=== PATIENT | female | born 1965 | race Caucasian/White ===

== ENCOUNTER 2023-12-24 05:00 | Outpatient (CLI) | payer BC, SELFPAY ==
[2023-12-24 13:09] LABS: Hemoglobin A1C 5.5 % (<5.7)
[2023-12-24 13:13] LABS: Calculated LDL 108 mg/dL (<100); Cholesterol 191 mg/dL (<200); HDL Cholesterol 74 mg/dL (40-60); TSH (W/Ref FT4) 0.98 uIU/mL (0.36-3.74); Triglyceride 49 mg/dL (<150)
== END 2023-12-24 05:01 | disposition home or self-care (01) ==
LOC: LBO 05:00
PROVIDERS: PCP Nurse Practitioner Family; Visit Provider Nurse Practitioner Family
DX: Z13.220 Encounter for screening for lipoid disorders (principal); Z13.29 Encounter for screening for other suspected endocrine disorder; Z13.1 Encounter for screening for diabetes mellitus
CPT/HCPCS: 36415; 80061; 83036; 84443

== ENCOUNTER 2023-12-30 11:02 | Outpatient (REF) | payer BC, SELFPAY ==
--- NOTE | 2023-12-30 10:40 | PAPFT_PTH ---
PATIENT: Cristina Ralph LOC: [facility] U#:[id number] AGE/SX: 58/F ROOM: RE12/30/[address]: Basilia Mejía NP : 1965 BED: DIS: 12/30/2023 SPEC #: [id number] RECD: 12/30/23 12:47 STATUS: NORA RELuzma #: [id number] TIGRE: 12/30/23 10:[address]: Basilia Mejía NP DEPT: [facility] Cytology RECD BY: Estella Quintero ENTERED: 12/30/23 12:47 SP TYPE: PAPFT OTHR DR: Dave Mcfarlane NP Tissues: 1 - CX/ENDOCX FOR PAP SMEARS Procedures: PAP THIN PREP/UVM Screening HPV DNA PROBE Comments: [id number]
== END 2023-12-30 11:03 | disposition home or self-care (01) ==
LOC: LBN 11:02
PROVIDERS: PCP Nurse Practitioner Family; Visit Provider Nurse Practitioner Women's Health
DX: Z12.4 Encounter for screening for malignant neoplasm of cervix (principal); D26.0 Other benign neoplasm of cervix uteri
CPT/HCPCS: 88142; 87624

== ENCOUNTER → 2024-01-06 03:50 | Outpatient (CLI) | payer BC, SELFPAY ==
--- NOTE | 2024-01-06 08:45 | DI.MAMMO_ITS ---
Exam(s) MAMMO SCREENING EXAM: MAMMO SCREENING CLINICAL HISTORY: screening TECHNIQUE: Mammograms were interpreted according to the usual protocol including computer analysis w [employer] CAD system, tomosynthesis and C-view imaging. COMPARISON: 2008 through 2016 from [facility] FINDINGS: The breasts are composed of heterogeneously dense fibroglandular densities, Breast Density category C . No suspicious masses or suspicious microcalcifications are seen. No skin thickening or abnormal axillary lymph nodes are seen. There has been no significant change from prior exams. IMPRESSION: BI-RADS Category 1, Negative mammogram. Yearly screening mammography is recommended. Breast Density Category C, heterogeneously Dense. The mammogram demonstrates the patient's breast tissue is dense. Dense breast tissue is very common a nd is not abnormal but dense breast tissue can make it harder to find cancer on a mammogram. Also, de nse breast tissue may increase breast cancer risk. This information about the result of the mammogram report was provided to the patient to raise their awareness. Use this report when you speak with the patient about their risks for breast cancer, which includes their family history. At that time, you may recommend additional screening tests (Ultrasound or MRI) as they might be useful based on their r isk. A negative radiographic report should not delay biopsy if a dominant or clinically suspicious mass is present. Up to ten percent of cancers are not identified on mammography. A negative report may reinforce clinical impression. Adenosis and dense breasts may obscure an underlying neoplasm. False positive reports average 6 to 10%.
== END ==
PROVIDERS: PCP Nurse Practitioner Family; Visit Provider Nurse Practitioner Women's Health
DX: Z12.31 Encounter for screening mammogram for malignant neoplasm of breast (principal)
CPT/HCPCS: 77063; 77067

== ENCOUNTER 2024-05-02 07:42 | Day surgery (SDC) | payer BC, SELFPAY ==
[2024-05-02 08:03] VITALS: BP 131/81; PULSE 60; RESP 16; TEMP 36.5; O2SAT 98
[2024-05-02] MEDS: Lactated Ringers 1,000 ML 80 ML IV (08:13)
--- NOTE | 2024-05-02 08:56 | W.PM.OP ---
Date of service: 05/02/24 Time of Service: 08:56 Operative Note Operative Note Refer to Anesthesia Record Procedure Description: PROCEDURES PERFORMED: 1. Colonoscopy with hot snare polypectomy x 3 PREOPERATIVE DIAGNOSIS: Screening colonoscopy POSTOPERATIVE DIAGNOSIS: Mild pandiverticulosis, colorectal polyps, grade 1 internal hemorrhoids SURGEON: Chet Rushing MD INDICATION FOR PROCEDURE: the patient is a 59-year-old woman with no symptoms. She has never had a colonoscopy before. No family history of colon cancer. FINDINGS: Terminal ileum was normal. Minimal/mild, scattered diverticular changes throughout the entire colon. In the transverse colon a 3-5 mm sessile polyp was removed with hot snare technique. Further along in the proximal rectum, a 5-7 mm polyp was removed with hot snare technique. A little bit further in the mid-? rectum another 3-5 mm sessile polyp was removed with hot snare technique. Minimal grade 1 internal hemorrhoids are present on retroflexion. SURVEILLANCE interval/FOLLOW-UP: 3-10 years pending path results of the polyps. If sessile serrated or villous histology then 3 years. Otherwise 7 to 10 years. SPECIMENS: Yes EBL: Minimal COMPLICATIONS: None QUALITY of prep: Excellent Procedure in detail: The patient gave written consent and was in agreement with the indications, the potential risks as well as the benefits of the procedure. They were taken to the endoscopy suite and laid in the left lateral decubitus position. A timeout was performed and anesthesia was administered which was tolerated well. I started the procedure. Digital rectal and visual examination was performed and grossly within normal limits. A well-lubricated flexible colonoscope was then introduced and passed without any notable difficulty all the way to the cecum identified by the ileocecal valve and the appendiceal orifice. The terminal ileum was intubated and looked normal. The scope was then slowly withdrawn with the above-noted findings. The patient tolerated the procedure well and was taken to the PACU in hemodynamically stable condition.
--- NOTE | 2024-05-02 08:58 | W.PM.DSUDISC ---
Date of service: 05/02/24 Time of Service: 08:58 Discharge Plan Disposition Patient Disposition: Home Condition: Good Discharge Details Attending Provider: Edgar Rushing Primary Care Provider: Dave Mcfarlane Home Meds and New Rx's Prescriptions: No Action bisacodyl [Dulcolax (bisacodyl)] 5 mg tablet,delayed release (DR/EC) 5 mg PO ONCE Qty: 4 0RF Rx Instructions: Take per colonoscopy instructions provided by ordering providers office polyethylene glycol 3350 17 gram/dose powder 17 g PO ONCE Qty: 238 0RF Rx Instructions: Take per colonoscopy instructions provided by ordering providers office Discharge Instructions Additional Instructions: FINDINGS: A few polyps were found and removed today. This is why we do the colonoscopy and they are nothing to worry about. They will get tested in pathology lab. You will get called with the results of that testing. The testing will determine whether you need another colonoscopy done in 3 years, 7 years or 10 years. Separately, some mild hemorrhoid and diverticular disease was found today. This is extremely common, they are benign conditions, and nothing needs to be done about them. Again, another colonoscopy will need to be done in 3 to 10 years depending on the path results of those polyps. Activity:: Activity as Tolerated Diet:: As Tolerated
--- NOTE | 2024-05-02 09:06 | W.ANESPRE ---
General Info Date of Service Date Performed: 05/02/24 Height: 5 ft 5 in Weight: 82.6 kg Body Mass Index (BMI): 30.3 Surgical Procedure: Operation Date: 05/02/24 09:20 Proposed Procedure Side Surgeon p Colonoscopy Edgar Rushing MD Actual Procedure Side Surgeon p Colonoscopy Edgar Rushing MD Pre-Op Diagnosis Post-Op Diagnosis screening colonoscopy Meds Allergies and Home Medications Allergies Allergy/AdvReac Type Severity Reaction Status Date / Time No Known Allergies Allergy Verified 05/02/24 08:03 Home Medication ?Medication ?Instructions ?Recorded bisacodyl 5 mg tablet,delayed 5 mg PO ONCE #4 tabs 04/07/24 release (Dulcolax (bisacodyl)) polyethylene glycol 3350 17 17 g PO ONCE #238 grams 04/07/24 gram/dose oral powder Current Visit Medications: Current Medications Generic Name Dose Route Start Last Admin Trade Name Freq PRN Reason Stop Dose Admin Ringer's Solution 1,000 mls @ 80 mls/hr 05/02/24 06:00 05/02/24 08:13 IV 05/02/24 23:59 80 mls/hr INFUSION CORINA Administration IV Miscellaneous Supplies 1 each 05/02/24 06:00 Iv Access IV 05/02/24 23:59 DIRECTED CORINA Sodium Chloride 0 ml 05/02/24 06:00 Normal Saline Flush 10 Ml Syr IV 05/02/24 23:59 PRN PRN Sodium Chloride 0 ml 05/02/24 06:00 Normal Saline 10 Ml Vial IJ 05/02/24 23:59 DIRECTED PRN Sterile Water 0 ml 05/02/24 06:00 Water,Injection,Sterile 10 Ml Vial IJ 05/02/24 23:59 DIRECTED PRN PFSH Active Problems Active Problems: Problem Status Onset Code Vaginal atrophy Acute N95.2 Skin lesion Acute L98.9 Mass in neck Acute R22.1 Smoker Acute F17.200 Medical History Medical History Hormone replacement therapy stopped around 2018 Sciatica Surgical History Surgical History H/O bilateral oophorectomy H/O ovarian cystectomy L Tobacco Smoking/Tobacco Use Status: Former Tobacco Use Passive smoking exposure: Yes Second hand exposure: Yes Counseling given: provider counseling Alcohol Alcohol Intake: current Alcohol intake frequency: holidays/special occasions only Alcohol type: beer Substance Use Substance use: Never Substance use type: does not use Vital Signs and Lab Results Vital Signs Most Recent Vital Signs in EMR: Most Recent Vital Signs Temp Pulse Resp BP Pulse Ox 36.5 C 60 16 131/81 98 05/02/24 08:03 05/02/24 08:03 05/02/24 08:03 05/02/24 08:03 05/02/24 08:03 Lab Results Blood Type / Crossmatch: No Data to Display Complete Blood Count: No Data to Display Complete Metabolic Panel: No Data to Display Liver Function Panel: No Data to Display Coagulation Panel: No Data to Display Cardiac Panel: No Data to Display Arterial Blood Gas: No Data to Display Venous Blood Gas: No Data to Display Pancreas Panel: No Data to Display Thyroid Panel: No Data to Display Infectious Disease: No Data to Display Blood Cultures: No Data to Display Toxicology Panel: No Data to Display Anesthesia Assessment and Plan Anesthesia History Personal History: No History of Anesthesia Complications Family History: No Family History of Anesthesia Complications Exercise Tolerance Exercise Tolerance: Metabolic Equivalents>4 Pertinent Negatives Pertinent Negatives: No Symptoms of GERD Cardiac & Pulmonary Exam Cardiac Exam: Normal S1/S2 Heart Sounds Pulmonary Exam: Clear Bilateral Breath Sounds Implantable Cardiac Device Does patient have a Pacemaker or an ICD?: No Airway Exam Known Difficult Airway: No Mallampati Class: 2 Mouth Opening: Normal (> 3cm) Thyromental Distance: Greater than 3 cm Neck Range of Motion: Full ROM Neck Circumference: Normal Teeth Condition: Normal Dentition ASA Classification ASA Score: ASA 2 Emergency Case?: No NPO Status NPO Status: NPO Clears >2 hours, Solids >8 hours Anesthesia Plan Resuscitation Status: Full Code Anesthesia Technique: General Anesthesia Airway Planned: Natural Airway Monitors Used: Standard Monitors
[2024-05-02 09:08] VITALS: BMI 30.3
--- NOTE | 2024-05-02 09:22 | BOWEL_PTH ---
PATIENT: Cristina Ralph LOC: [facility] U#:[id number] AGE/SX: 59/F ROOM: RE05/02/[address]: Edgar Rushing : 1965 BED: DIS: 05/02/2024 SPEC #: [id number] RECD: 05/02/24 11:48 STATUS: NORA RE #: [id number] TIGRE: 05/02/24 09:[address]: Edgar Rushing DEPT: Surgical Specimen RECD BY: Joselin Starkey ENTERED: 05/02/24 11:49 SP TYPE: Bowel OTHR DR: Dave Mcfarlane, [employer] OPERATOR Tissues: 1 - BIOPSY BOWEL 2 - BIOPSY BOWEL 3 - BIOPSY BOWEL Procedures: GROSS AND MICRO LEVEL 4 Comments: [id number]
[2024-05-02 09:41] VITALS: BP 125/77; PULSE 59; RESP 17; TEMP 36.5; O2SAT 98
--- NOTE | 2024-05-02 09:42 | W.ANESPOSTOP ---
Postoperative Evaluation Date, Time and Location Date Performed: 05/02/24 Time Performed: 09:42 Patient Location: Day Surgery Unit Vital Signs Most Recent Imported Vital Signs: Most Recent Vital Signs Temp Pulse Resp BP Pulse Ox 36.5 C 59 L 17 125/77 98 05/02/24 09:41 05/02/24 09:41 05/02/24 09:41 05/02/24 09:41 05/02/24 09:41 Pain Score Most Recent Pain Score: Most Recent Pain Score Pain Level 0 05/02/24 08:03 Assessment Mental Status: Awake (Alert & Oriented to Patient Baseline) Airway and Respiratory Function: Patent airway with normal (patient baseline) respiratory exam Cardiovascular Function: Hemodynamically Stable Hydration Status: Adequately Hydrated Nausea & Vomiting: No Nausea or Vomiting Pain: Pt. Denies Any Pain Peripheral Nerve Block: Patient did not receive a nerve block
[2024-05-02 10:04] VITALS: BP 123/76; PULSE 55; RESP 17; TEMP 36.5; O2SAT 100
== END 2024-05-02 10:27 | disposition home or self-care (01) ==
PROVIDERS: PCP Nurse Practitioner Family; Visit Provider Student in an Organized Health Care Education/Training Program
PROC: 0DJD8ZZ Inspection of Lower Intestinal Tract, Via Natural or Artificial Opening Endoscopic (ICD-10-PCS; CPT 45378; principal; 2024-05-02 09:15)
DX: Z12.11 Encounter for screening for malignant neoplasm of colon (principal); D12.3 Benign neoplasm of transverse colon; K62.1 Rectal polyp; K57.30 Diverticulosis of large intestine without perforation or abscess without bleeding; K64.0 First degree hemorrhoids
CPT/HCPCS: 45385; 00123; 88305; J2001; J2704

== ENCOUNTER 2024-09-17 15:33 | Emergency (ER) | payer OTHER, SELFPAY ==
[2024-09-17 15:35] VITALS: BP 144/92; PULSE 84; RESP 14; TEMP 36.8; O2SAT 98
[2024-09-17 15:45] VITALS: BP 144/92; PULSE 84; RESP 14; TEMP 36.8; O2SAT 98
--- NOTE | 2024-09-17 16:09 | W.ED.GENAD ---
Discharge Plan Disposition Patient Disposition: Home Condition: Stable Discharge Details Clinical Impression: Fecal impaction in rectum, Constipation Primary Care Provider: Dave Mcfarlane ED Provider: Mary Humphreys Home Meds and New Rx's Prescriptions: No Action No Known Home Meds Discharge Instructions Instructions: Fecal Impaction (DC) Additional Instructions: You were seen in the emergency department today for evaluation of constipation found to have a fecal impaction. In our department you had a full physical examination that was reassuring, had a manual disimpaction followed by a large-volume enema that was successful in passing a good quantity of stool. Now that the fecal obstruction is relieved, we need to start you on a bowel regimen that we will prevent the buildup of stool from occurring again. I recommend that you start by taking senna and MiraLAX, 1 dose twice per day. You may need to make adjustments to this dosing strategy, but the goal is for you to pass a moderate-sized, toothpaste consistency stool once per day. If you are going more often than that, you can decrease the frequency of medications or stop one of the medications altogether, and you can increase the MiraLAX dose as needed if you find that you are still not passing stool. You need to follow-up with your primary care provider in the next few days to discuss this visit and any symptoms change, worsen, or persist. If you develop a fever, nausea or vomiting, sudden or severe abdominal pain, or fail to pass gas for more than 12 hours, you need to return to the emergency department for reevaluation. Thank you for allowing us to be part of your care. HPI General Mode of arrival: ambulatory. Date/Time Provider Initiated Documentation: 09/17/24 15:35. Limitations to Documentation: no limitations. Information obtained by: patient and old records reviewed. HPI Narrative: HPI: This is a 59-year-old female patient with a past medical history significant for salpingectomy and oophorectomy bilaterally presenting for evaluation of constipation. The patient reports that she has been working on increasing her fitness, and has been drinking protein shakes and doubled the amount of protein shakes that she drank this week. She reports that she has been in her hydration, but became constipated, last bowel movement 2 or 3 days ago. She is still passing flatus, states that she has not had any nausea or vomiting, abdominal pain, but does feel a pressure in her rectum. She has tried stool softeners as well as Fleet enemas with no improvement. The patient reports that she has never had a bowel obstruction, has not had a fever, has been eating and drinking normally. No pain with urination although she can feel the pressure in her rectum when she urinates. Exam: Gen: Awake and alert, in no apparent distress HEENT: Non-icteric sclera Neck: Supple Lungs: No apparent respiratory distress, normal respiratory effort. CV: Appears well perfused, heart with regular rate and rhythm, strong distal pulses Abdomen: Non-distended, soft, nontender to palpation without rigidity, rebound, guarding : Rectal examination supervised by FUNMILAYO Shepherd, showing no external abnormalities such as hemorrhoids, fissures, etc. The patient does have a hard palpable stool ball in the rectal vault. No blood appreciated on the glove MSK: Moves 4 extremities without apparent limitation in ROM Skin: Visualized skin without rashes, cyanosis. Neuro: Normal Gait, no obvious focal deficits or facial asymmetry. Speaks in full, clear sentences. Psych: Appropriate for situation. MDM: This is a 59-year-old female patient presenting for evaluation of constipation. My differential includes but is not limited to fecal impaction, constipation, certainly considered that this may be due to slow transit in the setting of diet changes. The patient is not on any medications which would significantly increase her risk of constipation. I have a lower concern for bowel obstruction in this patient who does not have obstipation, and she has no obstructive symptoms such as nausea or vomiting. She has no abdominal tenderness to significantly increase my concern for intra-abdominal pathology. ED Course: A fecal disimpaction was performed, and a soapsuds enema was instilled. The patient was able to pass a large volume of soft, nonbloody stool, and had improvement in her rectal fullness after this event. We had an extended discussion regarding bowel regimen initiation, and I recommended senna and MiraLAX up to twice per day, titrated to 1 soft stool per day. She will follow-up with her primary care provider for reassessment, and we did discuss return precautions, especially for symptoms of bowel obstruction. At this time, the patient has had a full medical evaluation and is safe for discharge to home. They are hemodynamically stable, ambulatory, and tolerating PO. They are understanding of the follow-up plan and return precautions. They left our facility without incident. Mary Humphreys MD Related Data Home Medications ?Medication ?Instructions ?Recorded ?Confirmed Unknown [No Known Home Meds] 09/17/24 09/17/24 Allergies Allergy/AdvReac Type Severity Reaction Status Date / Time No Known Allergies Allergy Verified 09/17/24 15:41 General Stated Complaint: Abd Prob CECIL: 3 Course Vital Signs Vital signs: Vital Signs Temperature 36.8 C 09/17/24 15:35 Pulse 84 09/17/24 15:35 Respiratory Rate 14 09/17/24 15:35 Blood Pressure 144/92 H 09/17/24 15:35 Pulse Oximetry 98 09/17/24 15:35 Temperature 36.8 C 09/17/24 15:45 Temperature Source Oral 09/17/24 15:45 Pulse 84 09/17/24 15:45 Respiratory Rate 14 09/17/24 15:45 Blood Pressure 144/92 H 09/17/24 15:45 Blood Pressure Position Standing 09/17/24 15:45 Pulse Oximetry 98 09/17/24 15:45 Oxygen Delivery Method Room Air 09/17/24 15:45 Oxygen Flow Rate 0 09/17/24 15:45 Pain Level 4 09/17/24 15:45 Comment Pain can increase to 7 or 8 w/ movement. 09/17/24 15:45 Procedure Rectal Dismpaction Date of Procedure: 09/17/24 Time of procedure: 16:13 Provider that performed the procedure: Mary Humphreys Indication: fecal impaction Patient Consented: Verbally Technique: manual disimpaction with gloved finger Result: significant stool output Patient Tolerated Procedure: well Complications: none Medical Decision Making Quality:SDOH Health Related Social Needs: No Data to Display PFSH All Active Problems Constipation (Acute) Fecal impaction in rectum (Acute) Vaginal atrophy (Acute) Skin lesion (Acute) Mass in neck (Acute) Smoker (Acute) 1 pack/day Medical History (Updated 09/17/24 @ 16:48 by Mary Humphreys MD) Hyperplastic colon polyp (~04/2024) Tubular adenoma of colon (~04/2024) Hormone replacement therapy stopped around 2018 Sciatica Surgical History (Updated 05/02/24 @ 15:45 by Jo Verdugo) History of colonoscopy (~04/2024) H/O bilateral oophorectomy H/O ovarian cystectomy L Family History Mother Cancer Father Diabetes Heart disease Hyperlipidemia Hypertension Maternal Grandfather Cancer Diabetes Hyperlipidemia Hypertension Paternal Grandmother Diabetes Heart disease Hyperlipidemia Hypertension Social History (Updated 04/07/24 @ 10:18 by CURTIS Harvey) Smoking/Tobacco Use Status: Former Tobacco Use Quit Date: 01/06/24 Tobacco: How many years used: 35 Quit status: quit date established Second Hand Exposure: Yes Counseling given: provider counseling Smoking risk assessment performed?: Yes Alcohol Intake: current Alcohol Intake frequency: holidays/special occasions only Alcohol type: beer Drug use: Never Substance use type: does not use Adopted: No Caregiver/Support person: No Household members: none Housing: house Number of Children: 0 Communication Needs: None Education Level: high school Do you need help understanding health information?: Never 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 Sexually active: Yes Do you think of yourself as: straight/heterosexual Current gender identity: female What is your relationship status?: refused to answer How often do you talk on the phone with friends or family?: three or more times per week How often do you get together with friends or relatives?: three or more times per week How often do you attend oriental orthodox or scientologist services?: 4 or more times per year Do you belong to any clubs or organized social groups?: no Panel score (0-1 are the most socially isolated patients): 2 What type of physical activity do you participate in: regular exercise Molly/Sikhism: Confucianism Special molly needs: No Seatbelt use: always Helmet use: Yes Helmet use: always Drive intox or ride w/intox trolley coach driver: No Firearms in home: No Do you feel safe at home: Yes Do you feel safe in your relationship?: Yes Victim of physical abuse: No Victim of emotional abuse: No Victim of sexual abuse: No Would you like helpful sources: No Female Reproductive History Menstrual Age of Menarche: 12 control method: none Menopause type: surgical
[2024-09-17 16:56] VITALS: BP 132/80; PULSE 75; RESP 16; TEMP 37; O2SAT 97
== END 2024-09-17 16:57 | disposition home or self-care (01) ==
LOC: ER 16:52
PROVIDERS: Emergency Provider Emergency Medicine; PCP Nurse Practitioner Family
DX: K59.00 Constipation, unspecified (principal); K56.41 Fecal impaction
CPT/HCPCS: 99283

== ENCOUNTER 2025-02-02 02:41 | Outpatient (CLI) | payer OTHER, SELFPAY ==
--- NOTE | 2025-02-02 08:06 | DI.MAMMO_ITS ---
Exam(s) MAMMO SCREENING EXAM: MAMMO SCREENING CLINICAL HISTORY: screening. TECHNIQUE: Bilateral full field digital CC and MLO mammographic images were obtained with 3D tomosyn thesis and utilizing computer aided detection (CAD). COMPARISON: Prior mammograms dating back to 2014 were reviewed. Most recent mammogram reviewed was January 2024 FINDINGS: There has been no significant change in the appearance and distribution of the fibroglandular tissue. Asymmetric densities in both breasts appears unchanged prior mammograms. There are no new spiculated masses nor new malignant appearing microcalcification groups. There is no significant architectural distortion nor skin thickening-retraction. IMPRESSION: No radiographic evidence of malignancy. BI-RADS Category 1 - Negative Breast Density - Category B - There are scattered areas of fibroglandular density. Breast density Category C or D implies that the patient has dense breast tissue. Dense breast tissue can make it harder to find cancer on a mammogram. Dense breast tissue is also associated with an incr eased risk of breast cancer. This information about the result of the mammogram report was provided to the patient to raise their awareness. Use this report when you speak with the patient about their risks for breast cancer, which includes their family history. At that time, you may recommend additional screening tests (Ultrasoun d or MRI) as these tests may add significant information. A negative radiographic report should not delay biopsy if a dominant or clinically suspicious mass is present. Up to ten percent of cancers are not identified on mammography. A negative report may reinforce clinical impression. Adenosis and dense breasts may obscure an underlying neoplasm. False positive reports average 6 to 10%. Patient will receive a letter notifying them of these results.
== END 2025-02-02 03:01 ==
LOC: DI 02:41
PROVIDERS: PCP Nurse Practitioner Family; Visit Provider Nurse Practitioner Women's Health
DX: Z12.31 Encounter for screening mammogram for malignant neoplasm of breast (principal); R92.323 Mammographic fibroglandular density, bilateral breasts
CPT/HCPCS: 77063; 77067

== ENCOUNTER 2025-02-28 02:14 | Outpatient (CLI) | payer OTHER, SELFPAY ==
--- NOTE | 2025-02-28 | DI.RAD_ITS ---
Exam(s) XR FOOT LT COMPLETE EXAM: XR FOOT LT COMPLETE CLINICAL HISTORY: PAIN LT FOOT, M79.672. TECHNIQUE: 2D digital imaging was performed of the left foot. Three images were obtained. AP, oblique and lateral views were obtained. COMPARISON: No exams were available for comparison FINDINGS: BONES: No acute fracture is present. No bony destructive lesion is seen. There is a well-circumscribed non expansile cyst in the navicular. There is a small plantar calcaneal spur. JOINTS: No dislocation present. The joint spaces are well maintained. SOFT TISSUE: Normal. IMPRESSION: 1. Small plantar calcaneal spur. 2. Well-circumscribed cyst in the navicular. It has benign appearance. This may represent a simple bone cyst. Follow-up as clinically appropriate. DATA REPOSITORY: RADIATION DOSE DELIVERED:
--- NOTE | 2025-02-28 | DI.RAD_ITS ---
Exam(s) XR KNEE RT 3V AP,LAT,AMANDO EXAM: XR KNEE RT 3V AP,LAT,AMANDO CLINICAL HISTORY: PAIN JOINT KNEE RT, M25.561. TECHNIQUE: 2D digital imaging was performed of the right knee. Three views obtained. AP, lateral and PA tunnel views were obtained. COMPARISON: No exams were available for comparison FINDINGS: BONES: No acute fracture is present. No bony destructive lesion is seen. JOINTS: The knee is normally aligned. No joint effusion is seen. SOFT TISSUE: Normal. IMPRESSION: Unremarkable radiographs of the right knee. DATA REPOSITORY: RADIATION DOSE DELIVERED:
== END 2025-02-28 02:34 ==
PROVIDERS: PCP Nurse Practitioner Family; Visit Provider Nurse Practitioner Family
DX: M25.561 Pain in right knee (principal); M79.672 Pain in left foot
CPT/HCPCS: 73562; 73630

== ENCOUNTER 2025-03-20 14:03 | Outpatient (REF) | payer OTHER, SELFPAY ==
[2025-03-20 17:54] LABS: ESR 12 mm/hr (0-30)
[2025-03-20 17:59] LABS: C-Reactive Protein < 0.50 mg/dL (<or=0.5)
== END 2025-03-20 14:04 | disposition home or self-care (01) ==
LOC: NCHCN 14:03
PROVIDERS: PCP Nurse Practitioner Family; Visit Provider Nurse Practitioner Family
DX: M25.60 Stiffness of unspecified joint, not elsewhere classified (principal)
CPT/HCPCS: 85652; 86038; 86140; 86431

== ENCOUNTER 2025-06-18 11:25 | Emergency (ER) | payer OTHER, SELFPAY ==
[2025-06-18 11:27] VITALS: BP 144/89; PULSE 82; RESP 18; TEMP 37.3; O2SAT 98
[2025-06-18 11:34] VITALS: BP 144/89; PULSE 82; RESP 18; TEMP 37.3; O2SAT 98
--- NOTE | 2025-06-18 11:39 | W.ED.GENAD ---
Discharge Plan Disposition Patient Disposition: Home Discharge Details Clinical Impression: Constipation Primary Care Provider: Anita Foote ED Provider: Thomas Gonzalez Home Meds and New Rx's Prescriptions: Continued phentermine 37.5 mg tablet 37.5 mg PO DAILY Patient Comments: TAKE ONE TABLET BY MOUTH EVERY MORNING topiramate 50 mg tablet 50 mg PO DAILY Patient Comments: TAKE ONE TABLET BY MOUTH TWICE A DAY Discharge Instructions Additional Instructions: You were seen in the emergency department for your constipation. Please make sure you drink plenty of water and exercise each day. You may consider taking [id number] MiraLAX to soften your stool. There are also additional stool softeners. As we discussed, if you begin vomiting and do not stop or if you have any other concerns please return to the emergency department. Otherwise please follow-up with your primary care provider. Discharge Data Discharge Date/Time-TO BE ENTERED AT DEPARTURE: 06/18/25 14:20 HPI General Date/Time Provider Initiated Documentation: 06/18/25 11:39. HPI Narrative: MDM This is an overall quite well-appearing normothermic but not tachycardic constipated 60-year-old female with exam reassuring against a small bowel obstruction for which patient will receive both motility agents stool softener and enema prior to discharge with expectant outpatient management. She has a soft nontender abdomen so I am not suspicious for appendicitis in the absence of a right lower quadrant tenderness. She has not been vomiting making my suspicion lower for small bowel obstruction. No rash to abdomen to suggest zoster. No history of inflammatory bowel disease to suggest flare. Patient has had screening colonoscopies in the past and so I am not suspicious for malignancy as I do not feel she requires a CAT scan. No history of diarrhea nor left lower quadrant tenderness to suggest diverticulitis. Will attempt treatment with senna, Colace, and GoLytely. 2:03 PM Patient had Fleet enema and subsequent bowel movement. She felt improved. We discussed that she should return if she developed any abdominal pain could not eat or drink or develop recurrent constipation. She understood her return indications and was discharged with empiric trial of expectant outpatient management. HPI History of Present Illness This is a patient with a history of constipation presenting with constipation. The patient has been experiencing constipation since , with his last bowel movement occurring on Thursday. This is not his first encounter with this issue, as he had a similar episode in the past, which was more severe due to a delay in seeking treatment. He reports no abdominal pain, fevers, burning during urination, or vomiting. He has no history of abdominal surgeries but has undergone colonoscopies in the past, all of which were unremarkable. He attributes his current constipation to dietary changes, including the introduction of protein shakes and skipping meals. He also mentions that he has been consuming quick dinners and neglecting to eat salads or bread. His diet includes a boiled egg and a shake around 7:30 PM, but he has been forgetting the egg and only consuming the shake in recent days. He attempted to alleviate the constipation by taking laxatives last night and using an enema this morning, but these measures did not result in a bowel movement. He recalls that during his previous episode of constipation, he experienced significant discomfort and difficulty walking due to a full blockage. The treatment at that time involved a hot enema and manual disimpaction. She is passing gas. Exam General: Well-appearing in no acute distress speaking in complete sentences. Head: Normocephalic, atraumatic. Eye: Extraocular eye movements intact. No conjunctival injection. No scleral icterus. Ear, nose, mouth, throat: Grossly normal inspection. Normal voice, handling secretions normally. Neck: Trachea midline. Cardiovascular: Well-perfused distal extremities. Respiratory: Nonlabored respiration. Gastrointestinal: Nondistended abdomen. Soft. Nontender. No rebound. No guarding. Musculoskeletal: No edema. Moving all 4 extremities spontaneously. Skin: Normal for age and race, grossly normal temperature and turgor. No acute rash. Neurologic: Alert and appropriate, no apparent acute deficits. Psychiatric: Mood and manner are appropriate. Grooming and personal hygiene are appropriate. Related Data Home Medications ?Medication ?Instructions ?Recorded ?Confirmed phentermine 37.5 mg tablet 37.5 mg PO DAILY 06/18/25 06/18/25 topiramate 50 mg tablet 50 mg PO DAILY 06/18/25 06/18/25 Allergies Allergy/AdvReac Type Severity Reaction Status Date / Time No Known Allergies Allergy Verified 06/18/25 11:32 General Stated Complaint: Abd Prob CECIL: 3 Course Vital Signs Vital signs: Vital Signs Temperature 37.3 C 06/18/25 11:27 Pulse 82 06/18/25 11:27 Respiratory Rate 18 06/18/25 11:27 Blood Pressure 144/89 H 06/18/25 11:27 Pulse Oximetry 98 06/18/25 11:27 Temperature 37.3 C 06/18/25 11:34 Temperature Source Tympanic 06/18/25 11:34 Pulse 82 06/18/25 11:34 Respiratory Rate 18 06/18/25 11:34 Blood Pressure 144/89 H 06/18/25 11:34 Pulse Oximetry 98 06/18/25 11:34 Pain Level 0 06/18/25 11:34 PFSH All Active Problems (Updated 06/18/25 @ 14:05 by Thomas Gonzalez MD) Constipation (Acute) Vaginal atrophy (Acute) Skin lesion (Acute) Mass in neck (Acute) Medical History (Updated 06/18/25 @ 14:05 by Thomas Gonzalez MD) Former smoker Quit February 2024 Hyperplastic colon polyp (~04/2024) Tubular adenoma of colon (~04/2024) Hormone replacement therapy stopped around 2017 Sciatica Surgical History (Updated 01/03/25 @ 09:30 by Basilia Mejía NP) History of colonoscopy (~04/2024) H/O bilateral oophorectomy With bilateral salpingectomy H/O ovarian cystectomy L Family History Mother Cancer Father Diabetes Heart disease Hyperlipidemia Hypertension Maternal Grandfather Cancer Diabetes Hyperlipidemia Hypertension Paternal Grandmother Diabetes Heart disease Hyperlipidemia Hypertension Social History Smoking/Tobacco Use Status: Former Tobacco Use Quit Date: 01/06/24 Tobacco: How many years used: 35 Quit status: quit date established Second Hand Exposure: Yes Counseling given: provider counseling Smoking risk assessment performed?: Yes Alcohol Intake: current Alcohol Intake frequency: holidays/special occasions only Alcohol type: beer Drug use: Never Substance use type: does not use Adopted: No Caregiver/Support person: No Household members: none Housing: house Number of Children: 0 Communication Needs: None Education Level: high school Do you need help understanding health information?: Never 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 Sexually active: Yes Do you think of yourself as: straight/heterosexual Current gender identity: female What is your relationship status?: refused to answer How often do you talk on the phone with friends or family?: three or more times per week How often do you get together with friends or relatives?: three or more times per week How often do you attend anglican or gnosticism services?: 4 or more times per year Do you belong to any clubs or organized social groups?: no Panel score (0-1 are the most socially isolated patients): 2 What type of physical activity do you participate in: regular exercise Molly/Spiritism: Jehovah'S Witness Special molly needs: No Seatbelt use: always Helmet use: Yes Helmet use: always Drive intox or ride w/intox helper driver: No Firearms in home: No Do you feel safe at home: Yes Do you feel safe in your relationship?: Yes Victim of physical abuse: No Victim of emotional abuse: No Victim of sexual abuse: No Would you like helpful sources: No Female Reproductive History Menstrual Age of Menarche: 12 control method: none Menopause type: surgical
[2025-06-18 12:40] LABS: Abs Immature Grans 0.02 10^3/uL (0.0-0.06); HCT 40.1 % (36.0-46.0); HGB 13.4 g/dL (11.2-15.7); Immature Grans % 0.2 %; MCH 30.2 pg (27.0-33.0); MCHC 33.4 % (32.0-36.0); MCV 90 fL (80-95); MPV 9.9 fL (8.0-11.0); Platelet Count 254 10^3/uL (130-400); RBC 4.44 10^6/uL (3.93-5.22); RDW 12.8 % (11.7-14.6); RDW-SD 42.5 fL; WBC 8.18 10^3/uL (4.4-10.8)
[2025-06-18 12:57] LABS: ALT 25 U/L (14-59); AST 13 U/L (15-37); Albumin 3.9 g/dL (3.4-5.0); Alkaline Phosphatase 80 U/L (46-116); Anion Gap 8.2 mmol/L (3-11); BUN 22 mg/dL (7-18); Bilirubin, Total 0.4 mg/dL (0.2-1.0); CO2 25.8 mmol/L (21.0-32.0); Calcium 8.6 mg/dL (8.5-10.1); Chloride 107 mmol/L (98-107); Estimated GFR 57.88 (mL/min/1.73m2); Glucose 104 mg/dL (74-106); Potassium 3.9 mmol/L (3.5-5.1); Sodium 141 mmol/L (136-145); Total Protein 7.4 g/dL (6.4-8.2)
[2025-06-18] MEDS: Normal Saline 500 ML IV (13:12)
[2025-06-18 13:14] VITALS: BP 133/89; PULSE 76; TEMP 36.2
[2025-06-18] MEDS: Senna TAB 2 TAB PO (13:14)
[2025-06-18] MEDS: Polyethylene Glycol 3350 17 GM PACKET PO (13:14)
[2025-06-18] MEDS: Docusate Sodium 100 MG CAP PO (13:14)
[2025-06-18] MEDS: Na Phosphate Enema-Adult 133 ML BTL PR (13:41)
[2025-06-18 14:19] VITALS: BP 149/98; PULSE 71; RESP 18; O2SAT 99
== END 2025-06-18 14:20 | disposition home or self-care (01) ==
PROVIDERS: Emergency Provider Emergency Medicine; PCP Nurse Practitioner Family
DX: K59.00 Constipation, unspecified (principal)
CPT/HCPCS: 36415; 80053; 96360; 99284; 85025; 99283